=== PATIENT | male | born 1995 | race Caucasian/White ===

== ENCOUNTER 2016-12-29 18:56 | Emergency (ER) | payer OTHER ==
[2016-12-29 19:05] VITALS: BP 133/81; PULSE 80; RESP 16; O2SAT 96
[2016-12-29] MEDS ORDERED: TDAP ADULT 0.5 ML INJ (BOOSTRIX) IM ONE (19:20)
--- NOTE | 2016-12-29 19:38 | EDPHY ---
H & P Stated Complaint: Stepped on nail. Time Seen by Provider: 12/29/16 19:13 HPI/ROS: Chief complaint: Puncture wound to the bottom of the right foot from a nail History of present illness: This is a 21-year-old male who presents to the emergency department for evaluation of a puncture wound to the bottom of the right foot from a nail. Patient states yesterday he stepped on a standard type nail, it went through his shoe, through his sock and into the bottom of his right foot. He does not feel it went very deep. He scrubbed out the wound. Since then there has been minimal discomfort. He denies other associated signs or symptoms including no other wounds, no abnormal coolness or paresthesias in the foot. He is unsure of his last tetanus shot. - Personal History Current Tetanus/Diphtheria Vaccine: No Current Tetanus Diphtheria and Acellular Pertussis (TDAP): No - Medical/Surgical History Hx Asthma: No Hx Chronic Respiratory Disease: No Hx Diabetes: No Hx Cardiac Disease: No Hx Renal Disease: No Hx Cirrhosis: No Hx Alcoholism: No Hx HIV/AIDS: No Hx Splenectomy or Spleen Trauma: No Other PMH: denies - Social History Smoking Status: Never smoked - Physical Exam Exam: General: Alert, nontoxic Skin: There is a small puncture wound to the plantar surface of the right foot. Exploration does not reveal foreign body. No evidence of infection at this time. Musculoskeletal: He is moving all digits in the right foot and right ankle well. He is ambulating without difficulty. Vascular: DP and PT pulses 2+. Capillary refill brisk in the right foot. Neurologic: Sensation intact throughout the right foot. Constitutional: Initial Vital Signs Heart Rate 80 12/29/16 19:00 Respiratory Rate 16 12/29/16 19:00 Blood Pressure 133/81 H 12/29/16 19:00 O2 Sat (%) 96 12/29/16 19:00 O2 Delivery Mode Nasal Cannula Allergies/Adverse Reactions: No Known Allergies Allergy (Unverified 12/29/16 18:59) Home Medications: Medication Instructions Recorded NK [No Known Home Meds] 12/29/16 Medical Decision Making ED Course/Re-evaluation: Patient seen under the supervision of my primary supervising physician Dr. Mary Ann Edmonds. Patient presents to the emergency room for evaluation of a puncture wound to his right foot. The foot is neurovascularly intact. His tetanus is updated. There is no evidence of complications such as infection at this time. I have discussed pursuing an x-ray to rule out retained foreign body , he has declined. I have discussed starting antibiotics, specifically fluoroquinolones given this went through his shoe, I have discussed the risks and benefits, he has declined. Home care is discussed. Strict return precautions are given. Patient voiced understanding and agreement with plan. Differential Diagnosis: Included but not limited to puncture wound, retained foreign body, infection - Data Points Medications Given: Discontinued Medications Diphtheria/Tetanus/Acell Pertussis (Boostrix) 0.5 ml IM .ONCE ONE Stop: 12/29/16 19:21 Last Admin: 12/29/16 19:30 Dose: 0.5 ml Departure - Departure Disposition: Home, Routine, Self-Care Clinical Impression: Puncture wound of foot Qualifiers: Encounter type: initial encounter Laterality: right Qualified Code(s): S91.331A - Puncture wound without foreign body, right foot, initial encounter Condition: Good Instructions: Puncture Wound (ED), Acute Wounds (ED) Additional Instructions: Follow-up with a primary care doctor for recheck Keep wound clean with soap and water If symptoms worsen or new symptoms develop including increasing pain, increasing redness, swelling around the wound site, pustular discharge, fever or other signs or symptoms return to the emergency room for recheck Referrals: NONE *PRIMARY CARE P,. [Primary Care Provider] - As per Instructions [facility],. [Clinic] - As per Instructions
== END 2016-12-29 19:45 | disposition home or self-care (01) ==
DX: S91.331A Puncture wound without foreign body, right foot, initial encounter (principal); Z23 Encounter for immunization; W45.0XXA Nail entering through skin, initial encounter; Y93.89 Activity, other specified